=== PATIENT | female | born 1965 | race Caucasian/White ===

== ENCOUNTER 2020-05-16 17:00 | Emergency (ER) | payer BC, MEDICAID ==
[~2020-05-16] VITALS: Ht 167.6 cm; Wt 71.0 kg
[2020-05-16 17:08] VITALS: BP 132/70
--- NOTE | 2020-05-16 18:49 | NUR ---
PT LEFT BEFORE RECEIVING D/C PAPERWORK.
== END 2020-05-16 18:42 | disposition home or self-care (01) ==
LOC: ED 18:00
DX: S29.012A Strain of muscle and tendon of back wall of thorax, initial encounter (principal); S83.92XA Sprain of unspecified site of left knee, initial encounter; S83.91XA Sprain of unspecified site of right knee, initial encounter; F17.200 Nicotine dependence, unspecified, uncomplicated; X58.XXXA Exposure to other specified factors, initial encounter; Y93.89 Activity, other specified; Y92.89 Other specified places as the place of occurrence of the external cause; Y99.8 Other external cause status
CPT/HCPCS: 99281